=== PATIENT | male | born 1965 | race Caucasian/White ===

== ENCOUNTER → 2016-08-01 | Outpatient (CLI) | payer OTHER | DX: M79.672 Pain in left foot (principal); M19.072 Primary osteoarthritis, left ankle and foot | CPT/HCPCS: 73700 ==

== ENCOUNTER → 2020-06-20 | Outpatient (CLI) | payer OTHER | LOC: KOH-I 13:33 | DX: M14.672 Charcot's joint, left ankle and foot (principal); M79.89 Other specified soft tissue disorders | CPT/HCPCS: 73630 ==

== ENCOUNTER → 2020-08-03 | Outpatient (CLI) | payer OTHER | LOC: KOH-I 10:47 | DX: M95.9 Acquired deformity of musculoskeletal system, unspecified (principal); M19.072 Primary osteoarthritis, left ankle and foot | CPT/HCPCS: 73610; 73630 ==

== ENCOUNTER → 2020-09-12 | Outpatient (CLI) | payer OTHER | LOC: KOH-I 13:48 | DX: M14.672 Charcot's joint, left ankle and foot (principal); M25.472 Effusion, left ankle; M19.072 Primary osteoarthritis, left ankle and foot | CPT/HCPCS: 73610; 73630 ==

== ENCOUNTER → 2021-04-17 | Outpatient (CLI) | payer OTHER | LOC: KOH-I 09:19 | DX: M79.672 Pain in left foot (principal); M79.671 Pain in right foot; M17.0 Bilateral primary osteoarthritis of knee; S92.911A Unspecified fracture of right toe(s), initial encounter for closed fracture | CPT/HCPCS: 73610; 73630 ==

== ENCOUNTER → 2021-07-10 | Outpatient (CLI) | payer OTHER | LOC: KOH-I 11:42 | DX: M25.571 Pain in right ankle and joints of right foot (principal); M79.671 Pain in right foot; M20.11 Hallux valgus (acquired), right foot; M25.471 Effusion, right ankle | CPT/HCPCS: 73610; 73630 ==

== ENCOUNTER 2021-12-28 14:24 | Emergency (ER) | payer OTHER ==
[2021-12-28 15:41] LABS: HEMOGLOBIN 13.7 gm/dl (14.0-17.5); RED BLOOD COUNT 4.7 M/UL (4.20-5.50); WHITE BLOOD COUNT 16.2 K/UL (4.5-11.0)
== END 2021-12-28 23:05 | disposition short-term general hospital (02) ==
LOC: ER1 14:24
PROVIDERS: Preventive Medicine Occupational Medicine
DX: E11.51 Type 2 diabetes mellitus with diabetic peripheral angiopathy without gangrene (principal); L03.116 Cellulitis of left lower limb; L03.115 Cellulitis of right lower limb; I10 Essential (primary) hypertension; I25.10 Atherosclerotic heart disease of native coronary artery without angina pectoris; F17.210 Nicotine dependence, cigarettes, uncomplicated; Z20.822 Contact with and (suspected) exposure to COVID-19
CPT/HCPCS: 0240U; 75635; 80053; 83690; 85025; 85652; 86140; 87040; 93925; 96374; 96375; 96376; 99284; J0696; J1170; J3370; J7030; Q9967